=== PATIENT | female | born 1970 | race Caucasian/White ===

== ENCOUNTER 2022-09-06 09:22 | Outpatient (CLI) | payer OTHER | END 2022-09-06 09:23 | disposition home or self-care (01) | LOC: CSHMAMMO 09:22 | PROVIDERS: ATTEND Obstetrics & Gynecology | DX: Z12.31 Encounter for screening mammogram for malignant neoplasm of breast (principal); R92.1 Mammographic calcification found on diagnostic imaging of breast; N64.89 Other specified disorders of breast | CPT/HCPCS: 77063; 77067 ==